=== PATIENT | male | born 1995 | race Caucasian/White ===

== ENCOUNTER 2025-01-03 11:10 | Emergency (ER) | payer MEDICAID ==
[~2025-01-03] VITALS: Ht 185.4 cm; Wt 81.8 kg
[2025-01-03 11:43] VITALS: BP 115/67; PULSE 95; RESP 16; TEMP 98.2; O2SAT 98
== END 2025-01-03 12:50 | disposition home or self-care (01) ==
LOC: ER 11:11
DX: J02.9 Acute pharyngitis, unspecified (principal)
CPT/HCPCS: 99282